=== PATIENT | female | born 1945 | race Hispanic/Latino ===

== ENCOUNTER 2022-07-28 09:09 | Outpatient (CLI) | payer MEDICARE, MEDICAID | END 2022-07-28 09:10 | disposition home or self-care (01) | LOC: BICCT 09:09 | PROVIDERS: ATTEND Family Medicine | DX: R52 Pain, unspecified (principal); R22.2 Localized swelling, mass and lump, trunk; K42.9 Umbilical hernia without obstruction or gangrene | CPT/HCPCS: 74176 ==